=== PATIENT | female | born 1945 | race Caucasian/White ===

== ENCOUNTER 2021-06-12 11:19 | Outpatient (CLI) | payer MEDICARE, OTHER ==
--- NOTE | 2021-06-13 07:25 | Mammography Report ---
BILATERAL DIGITAL SCREENING MAMMOGRAM 3D/2D: 06/12/2021 CLINICAL: Baseline exam. Routine screening. Additional films were requested but not obtained. There are scattered fibroglandular elements in bot h breasts. No significant masses, calcifications, or other findings are seen in either breast. IMPRESSION: NEGATIVE There is no mammographic evidence of malignancy. A 1 year screening mammogram is recommended. This exam was interpreted at Station ID: [id number]. NOTE: For mammograms, a report in lay terms will be sent to the patient. Approximately 15% of breast malignancies will not be visualized mammographically. In the management of a palpable breast mass, a negative mammogram must not discourage biopsy of a clinically suspicious lesion. Electronically Signed By: Steven dudley/arnav:06/12/2021 12:52:09 ACR BI-RADS Category 1: Negative 3341F PARENCHYMAL PATTERN: (A) - The breast(s) demonstrate(s) scattered fibroglandular densities. BI-RADS CATEGORY: (1) - 1 RECOMMENDATION: (ANNUAL) - Recommend routine annual screening mammography. [id number] 1 year screening LATERALITY: (B)
== END 2021-06-12 11:20 | disposition home or self-care (01) ==
LOC: DI 11:19
PROVIDERS: ATTEND Physician Assistant
DX: Z12.31 Encounter for screening mammogram for malignant neoplasm of breast (principal)

== ENCOUNTER 2021-06-18 13:41 | Outpatient (CLI) | payer MEDICARE, OTHER ==
--- NOTE | 2021-06-18 18:09 | Ultrasound Report ---
PROCEDURE: Head or Neck Soft Tissue INDICATIONS: RIGHT THYROID NODULE TECHNIQUE: Real-time scanning was performed of the thyroid gland, with image documentation. COMPARISON: None FINDINGS: Right: Thyroid lobe measures 5.9 x 2.4 x 2.2 cm, and is heterogeneous in echotexture. Left: Thyroid lobe measures 4.0 x 1.4 x 1.1 cm, and is heterogeneous in echotexture. Isthmus: 2 mm thick. Nodule number: One Location: Right superior Size: 2.1 x 1.4 x 1.9 cm. Composition: Solid Echogenicity: Hypoechoic Shape: wider than tall. Margins: Smooth Echogenic foci: None Total points: 4 ACR TI-RADS category: 4 Nodule number: Two Location: Left anterior inferior Size: 1.7 x 1.0 x 1.6 cm. Composition: Solid Echogenicity: Hypoechoic Shape: wider than tall. Margins: Smooth Echogenic foci: None Total points: 4 ACR TI-RADS category: 4 Nodule number: Three Location: Right posterior inferior Size: 2.4 x 1.7 x 1.7 cm. Composition: Solid Echogenicity: Hypoechoic Shape: wider than tall. Margins: Smooth Echogenic foci: None Total points: 4 ACR TI-RADS category: 4 Nodule number: Four Location: Left superior Size: 0.6 x 0.6 x 0.5 cm. Composition: Solid Echogenicity: Hypoechoic Shape: wider than tall. Margins: Smooth Echogenic foci: None Total points: 4 ACR TI-RADS category: 4 Nodule number: 5 Location: Left inferior Size: 0.7 x 0.5 x 0.6 cm. Composition: Solid Echogenicity: Hypoechoic Shape: wider than tall. Margins: Smooth Echogenic foci: None Total points: 4 ACR TI-RADS category: 4 IMPRESSION: Lesions 12, and 3 are considered category 4 and secondary to size fine-needle aspiration is recommend ed. Lesions 4 and 5 are considered category 4. However, secondary to size, no additional follow-up is rec ommended. ACR TI-RADS definitions and recommendations: TI-RADS 1 (benign): 0 points. FNA not needed. TI-RADS 2 (not suspicious): 2 points. FNA not needed. TI-RADS 3 (mildly suspicious): 3 points. "FNA if 2.5 cm or larger, follow up if 1.5 cm or larger (at 1, 3, and 5 years). TI-RADS 4 (moderately suspicious): 4-6 points. "FNA if 1.5 cm or larger, follow up if 1 cm or larger (at 1, 2, 3, and 5 years). TI-RADS 5 (highly suspicious): 7 points or more. "FNA if 1 cm or larger, follow up if 0.5 cm or larger (every year for 5 years). Reviewed by: Zulma Grover MD on 06/18/2021 6:08 PM PST Approved by: Zulma Grover MD on 06/18/2021 6:08 PM PST Station ID: [id number]
== END 2021-06-18 13:42 | disposition home or self-care (01) ==
LOC: DI 13:41
PROVIDERS: ATTEND Physician Assistant
DX: E04.2 Nontoxic multinodular goiter (principal)

== ENCOUNTER 2022-11-06 07:20 | Day surgery (SDC) | payer MEDICARE, OTHER ==
--- NOTE | 2022-11-06 06:53 | ANESTHESIA ---
Pre-Anesthesia VS, & Labs - Diagnosis R nuclear cataract - Procedure extraction r cataract w/IOL - NPO >8 hours - Is Patient ?: No - Lab Results Lab results reviewed: Yes Home Medications and Allergies Home Medications: Ambulatory Orders Aspirin [[place] Aspirin] 1 tab PO DAILY 11/05/22 Calcium Carbonate [Calcium] 600 mg PO DAILY 11/05/22 Losartan [Cozaar] 25 mg PO TID 11/05/22 Multivitamin 1 tab PO DAILY 11/05/22 Niacinamide 500 mg PO DAILY 11/05/22 Rosuvastatin Calcium [Crestor] 1 tab PO DAILY 11/05/22 Aspirin [[place] Aspirin] 1 tab PO DAILY 11/05/22 Calcium Carbonate [Calcium] 600 mg PO DAILY 11/05/22 Losartan [Cozaar] 25 mg PO TID 11/05/22 Multivitamin 1 tab PO DAILY 11/05/22 Niacinamide 500 mg PO DAILY 11/05/22 Rosuvastatin Calcium [Crestor] 1 tab PO DAILY 11/05/22 Allergies/Adverse Reactions: Allergies Allergy/AdvReac Type Severity Reaction Status Date / Time No Known Drug Allergies Allergy Verified 11/05/22 13:28 Anes History & Medical History - Anesthetic History Anesthesia Complications: reports: No previous complications Family history of Anesthesia Complications: Denies Family history of Malignant Hyperthermia: Denies - Medical History Cardiovascular: reports: Hypertension, Murmur Gastrointestinal: reports: Colon polyps Urinary: reports: None Musculoskeletal: reports: None Endocrine/Autoimmune: reports: None Skin: reports: None - Surgical History General: reports: Colonoscopy Gynecologic: reports: Hysterectomy Exam General: Alert, Oriented x3, Cooperative Dental: WNL Mouth Openin Fingerbreadth Neck Mobility: Normal Mallampati classification: II Thyromental Distance: 4-6 cm Respiratory: Lungs clear, Normal breath sounds, No respiratory distress Cardiovascular: Regular rate Neurological: Normal speech Mental/Cognitive Status: Alert/Oriented X3, Normal for patient Cognitive Status: Within normal limits Plan Anesthesia Type: MAC Consent for Procedure(s) Verified and Reviewed: Yes Code Status: Attempt Resuscitation ASA classification: 2-Mild systemic disease Is this case an emergency?: No
[~2022-11-06 07:20] MED LIST: CYCLOPENTOLATE 1% OPHTH DROPS 2 ML ONE; KETOROLAC 0.45% OPHTH DROPS ONE; PHENYLEPHRINE 2.5% OPHTH 2 ML DROPS ONE; PROPARACAINE 0.5% OPHTH DROPS 15 ML ONE
[2022-11-06] MEDS ORDERED: MIDAZOLAM 2 MG/2 ML VIAL ONE (07:44)
[2022-11-06] MEDS ORDERED: LACTATED RINGERS 1,000 ML IV ONE (07:47)
[2022-11-06] MEDS ORDERED: EPINEPHrine 1 MG/ML AMP ONE (07:49)
[2022-11-06] MEDS ORDERED: TRIAMCIN/MOXIFLOX OPHTHALMIC 0.6 ML VIAL IO ONE ×2 (07:49→08:21)
[2022-11-06] MEDS ORDERED: BSS/LIDOCAINE/EPINEPHRINE 1 ML VIAL ONE (07:50)
[2022-11-06] MEDS ORDERED: VANCOMYCIN OPHTH (TOPICAL) 10 MG/ML SYRINGE ONE (07:50)
[2022-11-06] MEDS ORDERED: BRIMONIDINE 0.2% OPHTH DROPS 5 ML ONE (07:50)
[2022-11-06] MEDS ORDERED: TIMOLOL 0.5% OPHTH DROPS ONE (07:50)
[2022-11-06] MEDS ORDERED: BRIMONIDINE 0.2% OPHTH DROPS 5 ML OPTH ONE (08:21)
[2022-11-06] MEDS ORDERED: TIMOLOL 0.5% OPHTH DROPS OPTH ONE (08:21)
[2022-11-06] MEDS ORDERED: EPINEPHrine 1 MG/ML AMP IR ONE (08:21)
[2022-11-06] MEDS ORDERED: BSS/LIDOCAINE/EPINEPHRINE 1 ML SYRINGE IO ONE (08:21)
[2022-11-06] MEDS ORDERED: PROPARACAINE 0.5% OPHTH DROPS 15 ML RIGHTEYE ONE (08:21)
[2022-11-06] MEDS ORDERED: VANCOMYCIN OPHTH (TOPICAL) 10 MG/ML SYRINGE TOP ONE (08:22)
[2022-11-06] MEDS ORDERED: LACTATED RINGERS 850 ML IV ONE (08:31)
--- NOTE | 2022-11-06 08:31 | OPERATIVE REPORT ---
Operative Report - Other Other Information/Narrative: Date of Surgery: 11/06/22 Preop Dx: Visually significant cataract right eye. This was the first cataract surgery. Postop Dx: Same Procedure: Phacoemulsification with posterior chamber intraocular lens implant right eye Surgeon: Dr. Azael Goldberg Anesthesia: Monitored anesthesia care Complications: None Operative Indications: This is a 77-year-old F with progressive vision loss in the right eye due to 2+ nuclear sclerotic cataract. Best corrected visual acuity was 20/40 with glare to 20/50 vision in the right eye. Indications for surgery were: - Overall decrease in vision - Difficulty reading - Difficulty seeing words, closed captions, or game scores on TV - Difficulty seeing street signs - Difficulty driving in low light or at night - Difficulty driving at night because of headlights from other vehicles - Difficulty with glare or bright lights in any situation The patient was consented at length concerning the risks and benefits of cataract surgery after which the patient expressed a desire to proceed with surgery. Operative Procedure: The patient was taken into OR#3 and placed under monitored anesthesia care. A surgical time-out was conducted confirming correct patient, correct procedure, and correct surgical site. The patient was given topical anesthesia and then prepped and draped in the usual sterile fashion. The eye was entered at the 6 and 3 oclock positions. Intracameral Shugarcaine was injected into the anterior chamber followed by a dispersive viscoelastic. A continuous-tear curvilinear capsulorhexis was performed. The nucleus was hydrodissected and phacoemulsified. The cortex was evacuated using automated infusion and aspiration. A cohesive viscoelastic was injected into the capsular bag and a 19.0 diopter intraocular lens was inserted into the bag. Infusion and aspiration were used to evacuate the viscoelastic materials from the eye. The wounds were hydrated and the eye inflated to physiologic pressure using balanced salt solution. Approximately 0.25ml of a mixture of triamcinolone and moxifloxacin was injected trans-sclerally into the vitreous in the inferotemporal quadrant using a 30 gauge cannula. An additional 0.55ml of a mixture of triamcinolone and moxifloxacin was injected subconjunctivally in the superior quadrant for infection and inflammation prophylaxis. Wound integrity was checked with Weck-Nuria sponges. The patient was taken from the operating room in good condition and given post-op instructions.
--- NOTE | 2022-11-06 08:36 | ANESTHESIA POST OP EVALUATION ---
Anesthesia Post Eval - Post Anesthesia Eval Vitals: Last Vital Signs Temp 36.3 C L 11/06/22 07:41 Pulse 59 L 11/06/22 07:41 Resp 16 11/06/22 07:41 BP 138/73 H 11/06/22 07:41 Pulse Ox 100 11/06/22 07:41 O2 Flow Rate CV Function Including HR & BP: Stable Pain Control: Satisfactory Nausea & Vomiting: Negative Mental Status: Baseline Respiratory Status: Airway Patent Hydration Status: Satisfactory Anesthesia Complications: None
[2022-11-06 08:54] VITALS: BP 132/59
== END 2022-11-06 07:21 | disposition home or self-care (01) ==
LOC: SDS 07:20
PROVIDERS: ATTEND Ophthalmology
DX: H25.11 Age-related nuclear cataract, right eye (principal); I10 Essential (primary) hypertension
CPT/HCPCS: 66984; A9270; J3490; J7120

== ENCOUNTER 2023-01-08 07:19 | Day surgery (SDC) | payer MEDICARE, OTHER ==
--- NOTE | 2023-01-08 07:01 | ANESTHESIA ---
Pre-Anesthesia VS, & Labs - Diagnosis L nuclear cataract - Procedure L cataract extraction w/IOL Height: 5 ft 3 in - NPO >8 hours - Is Patient ?: No - Lab Results Lab results reviewed: Yes Home Medications and Allergies Aspirin [[place] Aspirin] 1 tab PO DAILY 11/05/22 Calcium Carbonate [Calcium] 600 mg PO DAILY 11/05/22 Losartan [Cozaar] 25 mg PO TID 11/05/22 Multivitamin 1 tab PO DAILY 11/05/22 Niacinamide 500 mg PO DAILY 11/05/22 Rosuvastatin Calcium [Crestor] 1 tab PO DAILY 11/05/22 Allergies/Adverse Reactions: Allergies Allergy/AdvReac Type Severity Reaction Status Date / Time No Known Drug Allergies Allergy Verified 11/05/22 13:28 Anes History & Medical History - Anesthetic History Anesthesia Complications: reports: No previous complications Family history of Anesthesia Complications: Denies Family history of Malignant Hyperthermia: Denies - Medical History Cardiovascular: reports: Hypertension, Murmur Gastrointestinal: reports: Colon polyps Urinary: reports: None Musculoskeletal: reports: None Endocrine/Autoimmune: reports: None Skin: reports: None - Surgical History General: reports: Colonoscopy Eyes Ears Nose Throat (EENT): reports: Cataracts Gynecologic: reports: Hysterectomy Exam General: Alert, Oriented x3, Cooperative Dental: WNL Mouth Openin Fingerbreadth Mallampati classification: II Thyromental Distance: 4-6 cm Plan Anesthesia Type: MAC Consent for Procedure(s) Verified and Reviewed: Yes Code Status: Attempt Resuscitation ASA classification: 2-Mild systemic disease Is this case an emergency?: No
[2023-01-08 07:37] VITALS: O2SAT 100
[2023-01-08] MEDS ORDERED: LACTATED RINGERS 1,000 ML IV ONE ×2 (07:43→08:55)
[2023-01-08] MEDS ORDERED: EPINEPHrine 1 MG/ML AMP ONE (08:11)
[2023-01-08] MEDS ORDERED: BSS/LIDOCAINE/EPINEPHRINE 1 ML VIAL ONE (08:11)
[2023-01-08] MEDS ORDERED: BRIMONIDINE 0.2% OPHTH DROPS 5 ML ONE (08:11)
[2023-01-08] MEDS ORDERED: TRIAMCIN/MOXIFLOX OPHTHALMIC 0.6 ML VIAL IO ONE ×2 (08:11→08:46)
[2023-01-08] MEDS ORDERED: TIMOLOL 0.5% OPHTH DROPS ONE (08:11)
[2023-01-08] MEDS ORDERED: MIDAZOLAM 2 MG/2 ML VIAL ONE (08:12)
[2023-01-08] MEDS ORDERED: BRIMONIDINE 0.2% OPHTH DROPS 5 ML OPTH ONE (08:45)
[2023-01-08] MEDS ORDERED: EPINEPHrine 1 MG/ML AMP IR ONE (08:46)
[2023-01-08] MEDS ORDERED: PROPARACAINE 0.5% OPHTH DROPS 15 ML EACHEYE ONE (08:46)
[2023-01-08] MEDS ORDERED: VANCOMYCIN OPHTH (TOPICAL) 10 MG/ML SYRINGE TOP ONE (08:46)
[2023-01-08] MEDS ORDERED: BSS/LIDOCAINE/EPINEPHRINE 1 ML SYRINGE IO ONE (08:46)
[2023-01-08] MEDS ORDERED: TIMOLOL 0.5% OPHTH DROPS OPTH ONE (08:46)
--- NOTE | 2023-01-08 09:01 | OPERATIVE REPORT ---
Operative Report - Other Other Information/Narrative: Date of Surgery: 01/08/23 Preop Dx: Visually significant cataract left eye. Cataract surgery was performed in the right eye on . Postop Dx: Same Procedure: Phacoemulsification with posterior chamber intraocular lens implant left eye Surgeon: Dr. Azael Goldberg Anesthesia: Monitored anesthesia care Complications: None Operative Indications: This is a 77-year-old F with progressive vision loss in the left eye due to 2+ nuclear sclerotic cataract. Best corrected visual acuity was 20/30 with glare to 20/50 vision in the left eye. Indications for surgery were: - Overall decrease in vision - Difficulty seeing words on a computer screen - Difficulty reading - Difficulty seeing words, closed captions, or game scores on TV - Difficulty seeing street signs - Difficulty driving in low light or at night - Difficulty driving at night because of headlights from other vehicles - Difficulty with glare or bright lights in any situation The patient was consented at length concerning the risks and benefits of cataract surgery after which the patient expressed a desire to proceed with surgery. Operative Procedure: The patient was taken into OR#3 and placed under monitored anesthesia care. A surgical time-out was conducted confirming correct patient, correct procedure, and correct surgical site. The patient was given topical anesthesia and then prepped and draped in the usual sterile fashion. The eye was entered at the 6 and 3 oclock positions. Intracameral Shugarcaine was injected into the anterior chamber followed by a dispersive viscoelastic. A continuous-tear curvilinear capsulorhexis was performed. The nucleus was hydrodissected and phacoemulsified. The cortex was evacuated using automated infusion and aspiration. A cohesive viscoelastic was injected into the capsular bag and a 19.0 diopter intraocular lens was inserted into the bag. Infusion and aspiration were used to evacuate the viscoelastic materials from the eye. The wounds were hydrated and the eye inflated to physiologic pressure using balanced salt solution. Approximately 0.25ml of a mixture of triamcinolone and moxifloxacin was injected trans-sclerally into the vitreous in the inferotemporal quadrant using a 30 gauge cannula. An additional 0.25ml of a mixture of triamcinolone and moxifloxacin was injected subconjunctivally in the superior quadrant for infection and inflammation prophylaxis. Wound integrity was checked with Weck-Nuria sponges. The patient was taken from the operating room in good condition and given post-op instructions.
[2023-01-08 09:08] VITALS: BP 115/70
--- NOTE | 2023-01-08 09:29 | ANESTHESIA POST OP EVALUATION ---
Anesthesia Post Eval - Post Anesthesia Eval Vitals: Last Vital Signs Temp 36 C L 01/08/23 08:55 Pulse 66 01/08/23 09:04 Resp 17 01/08/23 09:04 BP 115/70 01/08/23 09:04 Pulse Ox 100 01/08/23 09:04 O2 Flow Rate CV Function Including HR & BP: Stable Pain Control: Satisfactory Nausea & Vomiting: Negative Mental Status: Baseline Respiratory Status: Airway Patent Hydration Status: Satisfactory Anesthesia Complications: None
== END 2023-01-08 07:20 | disposition home or self-care (01) ==
LOC: SDS 07:19
PROVIDERS: ATTEND Ophthalmology
DX: H25.12 Age-related nuclear cataract, left eye (principal); I10 Essential (primary) hypertension
CPT/HCPCS: 66984; A9270; J3490; J7120

== ENCOUNTER 2023-07-22 15:45 | Outpatient (CLI) | payer MEDICARE, OTHER ==
--- NOTE | 2023-07-22 16:39 | XRAY Report ---
PROCEDURE: Hips w/Pelvis 2-3V BL INDICATIONS: HIP PAIN, LEFT TECHNIQUE: 3 view(s) of the hip were acquired. COMPARISON: None FINDINGS: Bones: No fractures or dislocations. No suspicious bony lesions. The visualized pelvic ring appear s intact. Moderate bilateral degenerative hip joint space narrowing. Degenerative changes are presen t within the lower lumbar spine. Soft tissues: No suspicious soft tissue calcifications or masses. Significant colonic stool consist ent constipation no obstruction IMPRESSION: Bilateral hip arthritic changes as above. Reviewed by: Zulma Grover MD on 07/22/2023 4:38 PM PST Approved by: Zulma Grover MD on 07/22/2023 4:38 PM PST Station ID: [id number]
== END 2023-07-22 16:00 | disposition home or self-care (01) ==
LOC: DI.N 15:45
PROVIDERS: ATTEND Physician Assistant
DX: M16.0 Bilateral primary osteoarthritis of hip (principal)

== ENCOUNTER 2023-07-22 17:31 | Emergency (ER) | payer MEDICARE, OTHER ==
[2023-07-22 18:05] LABS: BASOPHILS # (AUTO) 0.1 10^3/uL (0.0-0.1); BASOPHILS % (AUTO) 0.6 %; EOSINOPHILS # (AUTO) 0.4 10^3/uL (0.0-0.7); EOSINOPHILS % (AUTO) 4.8 %; HGB - HEMOGLOBIN 13.3 g/dL (12.0-16.0); LYMPHOCYTES # (AUTO) 2.4 10^3/uL (1.5-3.5); LYMPHOCYTES % (AUTO) 28.8 %; MEAN CORPUSCULAR HEMOGLOBIN 32.2 pg (27.0-31.0); MEAN CORPUSCULAR HGB CONC 33.3 g/dL (32.0-36.0); MEAN CORPUSCULAR VOLUME 96.9 fL (81.0-99.0); MEAN PLATELET VOLUME 9.5 fL (7.9-10.8); MONOCYTES # (AUTO) 0.5 10^3/uL (0.0-1.0); MONOCYTES % (AUTO) 6.4 %; NEUTROPHILS # (AUTO) 4.9 10^3/uL (1.5-6.6); NEUTROPHILS % (AUTO) 59.2 %; PLT - PLATELET COUNT 238 10^3/uL (130-450); RED BLOOD COUNT 4.13 10^6/uL (4.20-5.40); RED CELL DISTRIBUTION WIDTH 12.7 % (12.0-15.0); WHITE BLOOD COUNT 8.3 x10^3/uL (4.8-10.8)
--- NOTE | 2023-07-22 18:10 | XRAY Report ---
PROCEDURE: Chest 1V INDICATIONS: syncope TECHNIQUE: One view of the chest was acquired. COMPARISON: None. FINDINGS: Surgical changes and devices: None. Lungs and pleura: No pleural effusions or pneumothorax. Lungs are clear. Mediastinum: Mediastinal contours appear normal. Heart size is normal. Bones and chest wall: No suspicious bony lesions. Overlying soft tissues appear unremarkable. IMPRESSION: No acute cardiopulmonary process. Reviewed by: Bala Stanley MD on 07/22/2023 6:09 PM [facility] Approved by: Bala Stanley MD on 07/22/2023 6:09 PM [facility] Station ID: [id number]
[2023-07-22 18:24] LABS: ALBUMIN 4.4 g/dL (3.2-5.5); ALBUMIN/GLOBULIN RATIO 1.3 (1.0-2.2); BILIRUBIN,TOTAL 0.5 mg/dL (0.2-1.0); CALCIUM 10.2 mg/dL (8.5-10.3); CREATININE 0.6 mg/dL (0.6-1.3); POTASSIUM 3.8 mmol/L (3.5-4.5); TOTAL PROTEIN 7.8 g/dL (6.4-8.9)
[2023-07-22 21:07] VITALS: BP 155/85; O2SAT 95
--- NOTE | 2023-07-22 21:08 | ED Physician Documentation ---
History of Present Illness - Stated complaint Stated Complaint: - Chief complaint Chief Complaint: Trauma Abd - History obtained from History obtained from: Patient, Friend - History of Present Illness Timing: Today, How many hours ago (8) Pain level max: 7 Pain level now: 0 - Additonal information Additional information: Patient is a 78-year-old female who presents to the emergency department stating that she had a back spasm earlier today. She has been having ongoing issues with her back for the past several weeks. She states that the pain was intense enough to "dropped her to her knees". She states that she stood up, felt lightheaded and dizzy, then had a syncopal event. No head, neck, back pain since. No abdominal pain. No nausea or vomiting. She states she does feel like she strained her left groin, has pain on the inner aspect of the groin when walking, but not at rest. She went to the walk-in clinic and was sent here for further evaluation. No chest pain. No shortness of breath. Currently asymptomatic. Not on blood thinners. No headache. No seizure activity. No vomiting Review of Systems Constitutional: denies: Fever, Chills Nose: denies: Rhinorrhea / runny nose, Congestion Respiratory: denies: Cough GI: denies: Abdominal Pain, Nausea, Vomiting, Diarrhea : denies: Dysuria, Frequency, Hesitancy, Incontinent Skin: denies: Rash Musculoskeletal: denies: Neck pain Neurologic: denies: Generalized weakness, Focal weakness, Numbness, Seizure, Confused, Headache PD PAST MEDICAL HISTORY - Past Medical History Cardiovascular: Hypertension, Murmur Endocrine/Autoimmune: None GI: Colon polyps : None Psych: None Musculoskeletal: None Derm: None - Past Surgical History General: Colonoscopy /[employer]: Hysterectomy HEENT: Cataracts - Present Medications Home Medications: Ambulatory Orders Medication Instructions Recorded Confirmed Calcium Carbonate [Calcium] 600 mg PO DAILY 11/05/22 07/22/23 Losartan [Cozaar] 25 mg PO TID 11/05/22 07/22/23 Multivitamin 1 tab PO DAILY 11/05/22 07/22/23 - Allergies Allergies/Adverse Reactions: Allergies Allergy/AdvReac Type Severity Reaction Status Date / Time No Known Drug Allergies Allergy Verified 07/22/23 17:45 - Social History Does the pt smoke?: No Smoking Status: Never smoker Does the pt drink ETOH?: No Does the pt have substance abuse?: No PD ED PE NORMAL - Vitals Vital signs reviewed: Yes - General General: Alert and oriented X 3, No acute distress - HEENT HEENT: PERRL, Moist mucous membranes - Neck Neck: Supple, no meningeal sign - Cardiac Cardiac: RRR, Strong equal pulses - Respiratory Respiratory: No respiratory distress, Clear bilaterally - Abdomen Abdomen: Soft, Non tender, Non distended - Back Back: No CVA TTP, No spinal TTP - Derm Derm: Warm and dry - Extremities Extremities: Other (Full range of motion of the left hip without any pain with passive range of motion. She does have some pain on the inner aspect of the thigh with active motion. No swelling. No bruising. 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 Relevant findings are: Rate: Rate (enter#) (62) Rhythm: NSR [place]: Normal Intervals: Normal [place] QRS: Normal Ischemia: Normal ST segments - Labs Labs: Laboratory Tests 07/22/23 07/22/23 07/22/23 18:01 18:01 18:01 WBC 8.3 RBC 4.13 L Hgb 13.3 Hct 40.0 MCV 96.9 MCH 32.2 H MCHC 33.3 RDW 12.7 Plt Count 238 MPV 9.5 Neut # (Auto) 4.9 Lymph # (Auto) 2.4 [place] # (Auto) 0.5 Eos # (Auto) 0.4 Baso # (Auto) 0.1 Absolute Nucleated RBC 0.00 Nucleated RBC % 0.0 Sodium 137 Potassium 3.8 Chloride 100 L Carbon Dioxide 33 H Anion Gap 4.0 L BUN 9 Creatinine 0.6 Estimated GFR (MDRD) 97 Glucose 149 H Calcium 10.2 Total Bilirubin 0.5 AST 23 ALT 18 Alkaline Phosphatase 52 Troponin I High Sens 4.1 Total Protein 7.8 Albumin 4.4 Globulin 3.4 Albumin/Globulin Ratio 1.3 Lipase 18 - Rads (name of study) cxr Relevant Findings:: Final report received, See rad report PD Medical Decision Making - ED course Complexity details: reviewed results, re-evaluated patient, considered differential, d/w patient ED course: Patient with what sounds like a back spasm earlier today leading to a vasovagal syncopal event. Sounds like she has a strained groin as well. No bony tenderness. Ambulating well. No limping. Bedside ultrasound reveals a normal- appearing abdominal aorta. Approximately 1.4 to 1.5 cm in size. No evidence of rupture or aneurysm. No flap to suggest dissection. Symptoms do not sound consistent with aortic dissection. Patient is very well-appearing, nontoxic. No evidence of arrhythmias on telemetry. No headache. No skull fractures palpable. No scalp hematomas. Patient is not on blood thinners. It has been approximately 8 hours since the syncopal event and she is still GCS 15 and asymptomatic, I do not feel she needs a head CT at this time. Head injury instructions given at bedside. No neck tenderness. Full range of motion of the neck without pain. Patient counseled regarding signs and symptoms for which I believe and urgent re-evaluation would be necessary. Patient with good understanding of and agreement to plan and is comfortable going home at this time This document was made in part using voice recognition software. While efforts are made to proofread this document, sound alike and grammatical errors may occur. Departure - Departure Disposition: 01 Home, Self Care Clinical Impression: Back spasm, Vasovagal syncope Condition: Good Instructions: ED Spasm Back No Trauma, ED Syncope Vasovagal Follow-Up: MARTHA JENSEN PA-C [Primary Care Provider] - Within 1 week Comments: Your aorta on bedside ultrasound today measures 1.5 cm. There is no evidence of dissection or aneurysm. It appears that he had a back spasm today causing vasovagal syncope. Please follow-up with your doctor for further care and return if you worsen. Your labs do not show any acute abnormalities. Forms: PCP List Discharge Date/Time: 07/22/23 21:34
== END 2023-07-22 21:34 | disposition home or self-care (01) ==
LOC: ED 17:31
DX: R55 Syncope and collapse (principal); M62.830 Muscle spasm of back; M16.0 Bilateral primary osteoarthritis of hip
CPT/HCPCS: 36415; 80053; 83690; 84484; 85025; 93005; 99283; 99284